=== PATIENT | female | born 1940 | race Caucasian/White ===

== ENCOUNTER → 2016-12-05 | Outpatient (CLI) | payer OTHER ==
[2016-12-05 18:23] LABS: BLOOD UREA NITROGEN 15 mg/dl (7-18); BUN/CREATININE RATIO 14.1 (10-20); CALCIUM 8.3 mg/dl (8.5-10.1); CARBON DIOXIDE 32 mmol/L (21-32); CHLORIDE 100 mmol/L (98-107); GLUCOSE 95 mg/dl (70-99); POTASSIUM 4.4 mmol/L (3.5-5.1); SODIUM 139 mmol/L (136-145)
[2016-12-06 07:34] LABS: ESTIMATED AVERAGE GLUCOSE 180 mg/dl; HA1C FLAG Normal (Normal)
[2016-12-09 02:34] LABS: IONIZED CALCIUM** TC 19950E 4.81 MG/DL (4.8-5.6)
== END | disposition home or self-care (01) ==
LOC: C.LABMFLN 12:24
PROVIDERS: ATTEND Family Medicine
DX: E03.9 Hypothyroidism, unspecified (principal); E11.9 Type 2 diabetes mellitus without complications; E55.9 Vitamin D deficiency, unspecified; M79.1 Myalgia

== ENCOUNTER → 2017-01-27 | Outpatient (CLI) | payer OTHER ==
[2017-01-27 13:10] LABS: HEMATOCRIT 42.1 % (37-47); MEAN CELL VOLUME 90.9 fL (80-100); MEAN CORPUSCULAR HEMOGLOBIN 30.9 pg (25-34); MEAN PLATELET VOLUME 9.9 fL (7.4-10.4); PLATELET COUNT 308 K/uL (130-400); RED BLOOD COUNT 4.63 M/uL (4.2-5.4); WHITE BLOOD COUNT 12.45 K/uL (4.8-10.8)
[2017-01-27 13:38] LABS: CALCIUM 8.6 mg/dl (8.5-10.1)
[2017-01-27 13:46] LABS: ALT/SGPT 27 U/L (12-78); AST/SGOT 25 U/L (15-37); BLOOD UREA NITROGEN 10 mg/dl (7-18); BUN/CREATININE RATIO 10.6 (10-20); CARBON DIOXIDE 36 mmol/L (21-32); CHLORIDE 103 mmol/L (98-107); CREATININE 0.93 mg/dl (0.60-1.20); GLUCOSE 39 mg/dl (70-99); POTASSIUM 3.6 mmol/L (3.5-5.1); SODIUM 143 mmol/L (136-145)
== END | disposition home or self-care (01) ==
LOC: C.LABMFLN 10:39
PROVIDERS: ATTEND Internal Medicine Cardiovascular Disease
DX: I48.91 Unspecified atrial fibrillation (principal); E78.5 Hyperlipidemia, unspecified; I10 Essential (primary) hypertension; I50.22 Chronic systolic (congestive) heart failure; F17.200 Nicotine dependence, unspecified, uncomplicated; Z79.899 Other long term (current) drug therapy

== ENCOUNTER → 2017-09-12 | Outpatient (CLI) | payer OTHER ==
[2017-09-12 13:01] LABS: BASO % 0.2 %; BASO ABS # 0.03 K/uL (0-0.2); COMPLETE YES; EOS % 3.3 %; HEMATOCRIT 39.3 % (37-47); IG% 0.2 %; LYMPH % 17.1 %; LYMPH ABS # 2.22 K/uL (1.2-3.4); MEAN CELL VOLUME 91.6 fL (80-100); MEAN CORPUSCULAR HEMOGLOBIN 30.8 pg (25-34); MEAN CORPUSCULAR HGB CONC 33.6 g/dl (32-36); MEAN PLATELET VOLUME 9.7 fL (7.4-10.4); MONO % 10.7 %; NEUT % 68.5 %; PLATELET COUNT 350 K/uL (130-400); RED BLOOD COUNT 4.29 M/uL (4.2-5.4); WHITE BLOOD COUNT 12.99 K/uL (4.8-10.8)
[2017-09-12 13:08] LABS: ESTIMATED AVERAGE GLUCOSE 154 mg/dl; HA1C FLAG Normal (Normal)
[2017-09-12 14:09] LABS: ALB/GLOB RATIO 0.9 (0.9-2); ALKALINE PHOSPHATASE 112 U/L (45-117); ALT/SGPT 16 U/L (12-78); AST/SGOT 15 U/L (15-37); BLOOD UREA NITROGEN 14 mg/dl (7-18); BUN/CREATININE RATIO 16.3 (10-20); CALCIUM 8.4 mg/dl (8.5-10.1); CARBON DIOXIDE 33 mmol/L (21-32); CHLORIDE 99 mmol/L (98-107); CREATININE 0.87 mg/dl (0.60-1.20); GLUCOSE 50 mg/dl (70-99); POTASSIUM 3.2 mmol/L (3.5-5.1); SODIUM 137 mmol/L (136-145)
== END | disposition home or self-care (01) ==
LOC: C.LABMFLN 09:54
PROVIDERS: ATTEND Family Medicine
DX: E11.9 Type 2 diabetes mellitus without complications (principal); I10 Essential (primary) hypertension; I42.0 Dilated cardiomyopathy; E03.9 Hypothyroidism, unspecified

== ENCOUNTER → 2017-09-13 | Outpatient (CLI) | payer OTHER ==
[2017-09-13 18:28] LABS: CREATININE RANDOM URINE 78.6 mg/dl
== END | disposition home or self-care (01) ==
LOC: C.LABMFLN 14:11
PROVIDERS: ATTEND Family Medicine
DX: E11.9 Type 2 diabetes mellitus without complications (principal); I10 Essential (primary) hypertension; I42.0 Dilated cardiomyopathy

== ENCOUNTER → 2017-10-30 | Outpatient (CLI) | payer OTHER ==
[2017-10-30 18:44] LABS: BLOOD UREA NITROGEN 24 mg/dl (7-18); CALCIUM 8.8 mg/dl (8.5-10.1); CARBON DIOXIDE 31 mmol/L (21-32); CREATININE 1.62 mg/dl (0.60-1.20); GLUCOSE 253 mg/dl (70-99); POTASSIUM 4.2 mmol/L (3.5-5.1); SODIUM 135 mmol/L (136-145)
== END | disposition home or self-care (01) ==
LOC: C.LABMFLN 14:08
PROVIDERS: ATTEND Family Medicine
DX: Z00.00 Encounter for general adult medical examination without abnormal findings (principal); E55.9 Vitamin D deficiency, unspecified; E21.3 Hyperparathyroidism, unspecified; E87.6 Hypokalemia

== ENCOUNTER → 2017-12-13 | Outpatient (CLI) | payer OTHER ==
[~2017-12-13] MED LIST: AMIO200T4 PO; AMLO-110 PO; APIX1TAB3 PO; ATOR-22 PO; CARV25TA PO; ENAL10TA88 PO; ENOX30IN4 SQ; ERGO500037 PO; HYDR-3983 PO; IBAN150T PO; INSDGI SC; LEVO50TA PO; LSX40 PO; NVLGI7030 SC; PANC1200 PO; POTA10CA28 PO; cbd oil UT
== END | disposition home or self-care (01) ==
LOC: C.LABMFLN 13:27
PROVIDERS: ATTEND Family Medicine
DX: R10.9 Unspecified abdominal pain (principal)

== ENCOUNTER 2017-12-22 05:16 | Inpatient (IN) | payer OTHER ==
[2017-11-29 14:35] VITALS: BMI 22.0
--- NOTE | 2017-11-29 15:12 | PAT Medication Instructions ---
Service Date Nov 29, 2017. Current Home Medication List Amiodarone Hcl (Cordarone), 200 MG PO QAM Amlodipine (Norvasc), 10 MG PO QAM Apixaban (Eliquis), 5 MG PO BID Atorvastatin (Lipitor), 20 MG PO HS Carvedilol (Coreg), 1 TAB PO BID Enalapril (Vasotec), 10 MG PO BID Enoxaparin (Lovenox), 30 MG SQ Q12H Ergocalciferol (Vitamin D 16506 Unit), 1 CAP PO WK Furosemide (Furosemide), 1 TAB PO QAM Hydrocodone/Acetaminophen 7.5MG/325MG (Eden 7.5MG/325MG), 2 TABS PO QID PRN for Pain Ibandronate Sodium (Boniva), 150 MG PO MONTHLY Insulin Aspart 70/30 (Novolog Mix 70/30), 1 DOSE SC DIRECTED Insulin Glargine (Lantus), 16 SC QAM Levothyroxine Sodium (Synthroid), 50 MCG PO QAM Pancrelipase (Lipase-Protease- (Creon 14193), 1 CAP PO TIDM Pancrelipase (Lipase-Protease- (Creon 84611), 1 CAP PO DIRECTED Potassium Chloride (Micro-K Ext Rel), 10 MEQ PO BID [cbd oil], 3-4 DROPS UT BID Medication Instructions For Your Scheduled Surgery - To hold Eliquis 3 days prior to surgery and start Lovenox after stopping Eliquis: Apixaban (Eliquis), 5 MG PO BID Enoxaparin (Lovenox), 30 MG SQ Q12H - Continue as directed: Ibandronate Sodium (Boniva), 150 MG PO MONTHLY Ergocalciferol (Vitamin D 95087 Unit), 1 CAP PO WK - Hold the following medications 24 hours prior to surgery: Enalapril (Vasotec), 10 MG PO BID - Hold the following medications the morning of surgery: Furosemide (Furosemide), 1 TAB PO QAM Insulin Aspart 70/30 (Novolog Mix 70/30), 1 DOSE SC DIRECTED Pancrelipase (Lipase-Protease- (Creon 18718), 1 CAP PO TIDM Pancrelipase (Lipase-Protease- (Creon 34126), 1 CAP PO DIRECTED Potassium Chloride (Micro-K Ext Rel), 10 MEQ PO BID [cbd oil], 3-4 DROPS UT BID - Take the following medications the morning of surgery with a sip of water: Levothyroxine Sodium (Synthroid), 50 MCG PO QAM Hydrocodone/Acetaminophen 7.5MG/325MG (Eden 7.5MG/325MG), 2 TABS PO QID PRN for Pain (okay to take up to 4 hours prior to surgery if needed) Amiodarone Hcl (Cordarone), 200 MG PO QAM Amlodipine (Norvasc), 10 MG PO QAM Carvedilol (Coreg), 1 TAB PO BID - Take the following medications as scheduled the night before surgery: Potassium Chloride (Micro-K Ext Rel), 10 MEQ PO BID Pancrelipase (Lipase-Protease- (Creon 70679), 1 CAP PO TIDM Pancrelipase (Lipase-Protease- (Creon 77609), 1 CAP PO DIRECTED Insulin Aspart 70/30 (Novolog Mix 70/30), 1 DOSE SC DIRECTED Hydrocodone/Acetaminophen 7.5MG/325MG (Eden 7.5MG/325MG), 2 TABS PO QID PRN for Pain (if needed) Carvedilol (Coreg), 1 TAB PO BID Atorvastatin (Lipitor), 20 MG PO HS - For Insulin Dependent Diabetic patients: Test blood sugar A.M. of surgery. - If Blood sugar greater than 150, take half of your regular dose of: Insulin Glargine (Lantus), take 8 units - If Blood sugar less than 150, do not take any: Insulin Glargine (Lantus ) If you have any questions please call us at [phone] or [phone] or [phone]
--- NOTE | 2017-11-29 15:40 | DIAGNOSTIC IMAGING REPORT ---
CHEST 2 VIEWS ROUTINE CLINICAL HISTORY: Preoperative evaluation. COMPARISON STUDY: No previous studies for comparison. FINDINGS: Lung volumes are normal. No pneumothorax or pleural effusion is noted. There is no consolidation or evidence for pulmonary edema. Cardiomediastinal silhouette is normal. Old left sixth rib fracture is present. IMPRESSION: No acute cardiopulmonary findings. Electronically signed by: Edu Thomas M.D. 11/29/2017 3:38 PM Dictated Date/Time: 11/29/2017 3:37 PM
[2017-11-29 16:37] LABS: BASO % 0.2 %; BASO ABS # 0.03 K/uL (0-0.2); EOS % 5.9 %; EOS ABS # 0.74 K/uL (0-0.5); HEMATOCRIT 37.4 % (37-47); HEMOGLOBIN 12.2 g/dL (12.0-16.0); IG# 0.04 K/uL (0.00-0.02); LYMPH % 17.6 %; MEAN CELL VOLUME 89.9 fL (80-100); MEAN CORPUSCULAR HEMOGLOBIN 29.3 pg (25-34); MEAN CORPUSCULAR HGB CONC 32.6 g/dl (32-36); MEAN PLATELET VOLUME 9.5 fL (7.4-10.4); MONO % 7.6 %; MONO ABS # 0.95 K/uL (0.11-0.59); NEUT % 68.4 %; NEUT ABS # 8.54 K/uL (1.4-6.5); PLATELET COUNT 322 K/uL (130-400); RED CELL DISTRIBUTION WIDTH CV 14.1 % (11.5-14.5); RED CELL DISTRIBUTION WIDTH SD 46.4 fL (36.4-46.3)
[2017-11-29 16:42] LABS: CALCIUM 8.6 mg/dl (8.5-10.1); CREATININE 1.25 mg/dl (0.60-1.20); POTASSIUM 4.5 mmol/L (3.5-5.1)
[2017-11-29 16:43] LABS: PTT PATIENT 28.7 SECONDS (21.0-31.0)
[2017-11-30 07:15] LABS: HEMOGLOBIN A1C 8.6 % (4.5-5.6)
--- NOTE | 2017-12-21 15:33 | History and Physical ---
History & Physical Date of Service Dec 21, 2017. History & Physical CC: Right internal carotid artery stenosis HPI: Mrs. Elisa Nava is a 77-year-old woman with history of hyperparathyroidism, depression, CVA in 2010, type 2 diabetes, pancreatic adenocarcinoma, CHF, hypertension, atrial fibrillation with RVR on apixaban, dilated cardiomyopathy, hypothyroidism, who is being evaluated for carotid stenosis. The patient says that she underwent a screening ultrasound a year ago and was found to have stenosis at that time, but that it was not severe. She had a repeat ultrasound recently with concern for increasing stenosis up to 75%. She then underwent a neck CTA, which showed right 70-75% ICA stenosis. The patient says that she did have a mini-stroke in 2010 and had difficulties swallowing and with right leg weakness at that time. That has since improved. She also reports difficulties with left-sided headaches. She denied any symptoms recently of unilateral upper or lower extremity numbness or weakness. She denies symptoms of amaurosis. She does report feeling "wobbly" and is wondering if her carotid disease is related to this. We reassured her that it is not likely related to her carotid disease. She is otherwise feeling well and denies chest pain, shortness of breath, nausea, vomiting, fevers, chills, night sweats. The patient says that she is a current smoker and has smoked for approximately 6 years. She did deny difficulties with claudication or rest pain. A 12-point review of systems was completed, with pertinent positives and negatives as noted above in HPI. Past medical history is significant for hyperparathyroidism, depression, CVA in 2010, diabetes, pancreatic adenocarcinoma, CHF, hypertension, atrial fibrillation with rapid ventricular response, dilated cardiomyopathy, smoking, hypothyroidism. Past surgical history is significant for Whipple in 2007, tonsillectomy, appendectomy, cataract surgery, ganglion cyst removal, breast cyst removal. Family history is significant for cancer, diabetes, heart disease. Social history is significant for current tobacco use. The patient says that she smokes about half a pack per day and has done so for the past 60 years. She drinks wine occasionally, approximately once per month. Medications were reviewed and include Vicodin, amiodarone, amlodipine, Eliquis, atorvastatin, Coreg, vitamin D3, enalapril, Lasix, ibandronate, insulin aspart, insulin glargine, levothyroxine, pancrelipase, potassium chloride. The patient has no known drug allergies. On physical exam, the patient's heart rate is 52 and blood pressure is 142/54 in the left arm and 136/48 in the right arm. She is awake, alert, and pleasant , in no acute distress. Neck is supple and trachea is midline. She has a significant right carotid bruit. Her lungs are clear to auscultation bilaterally. Her heart is bradycardic, irregularly irregular rhythm. Her abdomen is soft, nontender, nondistended with well-healed surgical incisions. Extremities: Bilateral feet are warm and well perfused. The patient has 5/5 strength in bilateral upper and lower extremities. Sensation is grossly intact. She has palpable radial pulses in her bilateral upper extremities. The patient underwent CTA of the neck, which was significant for 70-75% stenosis of the proximal right ICA and mild 45-50% focal stenosis in the proximal left ICA. Imp: Right internal carotid artery stenosis Plan: Patient is admitted for a right internal carotid artery endarterectomy with patch. I have discussed the risks options and benefits of the procedure with the patient. The patient understands the risks options and benefits and agrees to the procedure.
[~2017-12-22] VITALS: Ht 167.6 cm; Wt 66.9 kg
[2017-12-22] VITALS (9 sets, daily range): BP systolic 148–170; BP diastolic 54–73; PULSE 65–77; TEMP 36.7–37.5; O2SAT 93–97; Ht 167.6 cm; Wt 66.9 kg
[2017-12-22] MEDS ORDERED: CEFAZOLIN 1000MG IV PUSH 7.5 ML IV SCH (06:00)
[2017-12-22] MEDS ORDERED: LACTATED RINGER'S 1000ML 1,000 ML IV SCH ×2 (06:00)
[2017-12-22] MEDS ORDERED: ATROPINE SULFATE 0.1 MG/ML 5ML SYR IV PRN (07:00)
[2017-12-22] MEDS ORDERED: HYDROmorphone INJ 1 MG/ML SYR IV PRN (07:00)
[2017-12-22] MEDS ORDERED: EpHEDrine SULFATE INJ 50 MG/ML AMP IV PRN (07:00)
[2017-12-22] MEDS ORDERED: PHENYLEPHRINE 100MCG/ML 5ML SYR IV PRN (07:00)
[2017-12-22] MEDS ORDERED: FENTANYL CITRATE INJ 50 MCG/1 ML 2 ML VIAL IV PRN (07:00)
[2017-12-22] MEDS ORDERED: ONDANSETRON INJ 2 MG/ML 2 ML VIAL IV PRN ×2 (07:00→13:15)
[2017-12-22] MEDS ORDERED: THROMBIN FOR SOLN 20000 UNIT KIT ONE (07:25)
[2017-12-22] MEDS ORDERED: GELATIN SPONGE SZ 100 ONE (07:25)
[2017-12-22] MEDS ORDERED: LIDOCAINE HCL 1% 20 ML VIAL ONE (07:26)
[2017-12-22] MEDS ORDERED: HEPARIN SOD (PORCINE) 1000 UNIT/ML 10 ML VIAL ONE ×2 (07:26→08:44)
[2017-12-22] MEDS ORDERED: CEFAZOLIN SOD 1 GM VIAL ONE (07:26)
[2017-12-22] MEDS ORDERED: BUPIVACAINE/EPINEPHRINE 0.5% MPF 1:200,000 30 ML VIAL ONE (07:26)
[2017-12-22] MEDS ORDERED: NITROGLYCERIN 5 MG/ML 10 ML VIAL ONE (07:27)
[2017-12-22] MEDS ORDERED: LIDOCAINE HCL 2% JELLY 30 ML TUBE EXT ONE (07:27)
--- NOTE | 2017-12-22 07:36 | History & Physical Bridge Note ---
H&P Re-Evaluation Bridge Note: I have examined the patient, reviewed the History & Physical and in the interval since the performance of the History & Physical I have noted the following changes of clinical significance: No changes noted
[2017-12-22] MEDS ORDERED: LIDOCAINE HCL 2% 2 ML VIAL (20MG/ML) ONE ×2 (08:04→08:44)
[2017-12-22] MEDS ORDERED: PHENYLEPHRINE HCL INJ 10 MG/ML VIAL ONE (08:44)
[2017-12-22] MEDS ORDERED: PROPOFOL IV EMULSION 10 MG/ML 20 ML VIAL IV ONE (08:44)
[2017-12-22] MEDS ORDERED: FENTANYL CITRATE INJ 50 MCG/1 ML 2 ML VIAL ONE ×2 (08:44→11:47)
[2017-12-22] MEDS ORDERED: SUCCINYLCHOLINE CHLORIDE 20 MG/ML 10 ML VIAL IV ONE (08:44)
[2017-12-22] MEDS ORDERED: ONDANSETRON INJ 2 MG/ML 2 ML VIAL ONE (11:47)
[2017-12-22] MEDS ORDERED: GLYCOPYRROLATE INJ 0.2 MG/ML VIAL ONE (12:56)
[2017-12-22] MEDS ORDERED: NEOSTIGMINE METHYLSULFATE 5 MG/5 ML SYR ONE (12:56)
--- NOTE | 2017-12-22 13:09 | [facility] Post Operative Brief Note ---
Immediate Operative Summary Operative Date Dec 22, 2017. Pre-Operative Diagnosis Right Internal Carotid Artery Stenosis Post-Operative Diagnosis Same as preop Procedure(s) Performed Right carotid endarterectomy with patch Surgeon Dr. Vito Peterson Wallpaperer Surgeon(s) Emily Thomas, Fellow; Diana Alvares PA-C Estimated Blood Loss 100 cc Findings Consistent with Post-Op Diagnosis Specimens A: right carotid plaque Drains None Anesthesia Type General Complication(s) none Disposition Accompanied Pt To Recover: no Disposition: Recovery Room / PACU
[2017-12-22] MEDS ORDERED: OXYCODONE/ACETAMINOPHEN 5-325 TAB PO PRN (13:15)
[2017-12-22] MEDS ORDERED: GLUCOSE 10 TABS/TUBE PO PRN (13:15)
[2017-12-22] MEDS ORDERED: MoRPHine SULFATE 4 MG/ML 1 ML CARP\\VIAL IV PRN (13:15)
[2017-12-22] MEDS ORDERED: DEXTROSE 50% 50 ML SYR IV PRN (13:15)
[2017-12-22] MEDS ORDERED: GLUCOSE 40% GEL 15 GM TUBE PO PRN (13:15)
[2017-12-22] MEDS ORDERED: GLUCAGON FOR INJ 1 MG VIAL SQ PRN (13:15)
[2017-12-22] MEDS ORDERED: NITROGLYCERIN/D5W 100 MCG/ML BTL ONE (13:51)
--- NOTE | 2017-12-22 14:11 | OPERATIVE REPORT ---
DATE OF OPERATION: 12/22/2017 PREOPERATIVE DIAGNOSIS: High grade asymptomatic right carotid stenosis. POSTOPERATIVE DIAGNOSIS: Same. PROCEDURE: Right carotid endarterectomy with a Pemberton-Rex patch angioplasty. SURGEON: Dr. Vito Peterson. SCRAP CRUSHER: Dr. Emily Vazquez and Diana Bourgeois PA-C. ANESTHESIA: General anesthesia. FLUIDS: 1200 mL crystalloid. URINE OUTPUT: Not recorded. COMPLICATIONS: None apparent. CONDITION: Extubated to PACU. INDICATIONS: Ms. Elisa Nava is a 77-year-old female, who was found to have asymptomatic right high grade 75%-80% stenosis. She was advised the risks and benefits of undergoing carotid endarterectomy for stroke prevention. She agreed to undergo the procedure. DESCRIPTION OF PROCEDURE: The patient was brought to the operative suite. She was prepped and draped in the usual fashion. Time-out occurred. An incision was made anterior to the sternocleidomastoid. The platysma was then divided. The anterior border of the sternocleidomastoid was identified and taken down and retracted laterally. The facial vein was then identified and divided. It was palpated prior to division to ensure there was no low lying hypoglossal nerve. Then, the IJ was retracted laterally. During this time, the tie on the medial aspect of the facial vein was done and the medial aspect was ligated with a 2-0 silk stitch. The carotid was then identified and the common carotid was dissected out. The external carotid and superior thyroid were dissected out. The internal carotid was dissected out. During manipulation of the fold, the patient became bradycardic and lidocaine was injected into the bulb. Once the carotid was adequately exposed, the patient was heparinized with 5000 units of heparin. The external artery was looped with a vessel loop. After heparinization, the internal, external and common carotid arteries were clamped. #11 blade was used to make an arteriotomy. This was extended with Solorio scissors onto the internal carotid artery and distally into the common. A Jorge L shunt was then placed proximally and backbleeding was allowed. This was secured with a small Jorge L clamp. The shunt was then placed distally and secured with a large Jorge L shunt. Flow was reestablished to the shunt. At this point, attention was turned to the plaque. This was elevated using a Garvin elevator. The plaque was focal and calcific. The external carotid was also endarterectomized. Proximally, 2 tacking sutures were placed. The patch was brought into the field. The Pemberton-Rex patch was then sewn in with a CV6 suture. This was carried around for as long as possible until shunt required removal. At this point, the shunt was clamped with a hemostat. A Jorge L clamp was then removed and replaced with the proximal clamp. Prior to applying the clamp, the internal carotid was allowed to backbleed. Then, the shunt was removed from the common carotid. This was allowed to backbleed for a couple of bleeds and then an angled DeBakey clamp was used to clamp the common carotid. The patch was completed. The external was opened and then the common was allowed to back flow into the external and then the internal carotid was opened up and flow was reestablished. There was one area proximally that required a repair stitch. Otherwise, hemostasis was then obtained and the incision was closed with a 3-0 Vicryl and 4-0 Vicryl sutures. Incision was Dermabonded. The patient was awakened and moved all extremities and then, was transferred to the PACU in stable condition. Dr. Vito Peterson was present for the entirety of this case. I attest to the content of the Intraoperative Record and any orders documented therein. Any exception s are noted below.
--- NOTE | 2017-12-22 14:33 | Anesthesiology Progress Note ---
Anesthesia Post Op Note Date & Time Dec 22, 2017 at 14:33 Vital Signs Pain Intensity: 0 Vital Signs Past 12 Hours Date Time Temp Pulse Resp B/P (MAP) Pulse Ox O2 Delivery O2 Flow Rate FiO2 12/22/17 14:25 63 18 131/48 100 Nasal Cannula 3 166/54 12/22/17 14:15 63 18 131/48 100 Oxymask 10 161/47 12/22/17 14:05 63 18 153/60 100 Oxymask 10 170/51 12/22/17 13:55 64 18 132/52 100 Oxymask 10 12/22/17 13:46 37.6 65 18 166/62 100 Oxymask 10 12/22/17 05:43 36.7 65 20 163/54 97 Room Air Notes Mental Status: alert / awake / arousable, participated in evaluation Pt Amnestic to Procedure: Yes Nausea / Vomiting: adequately controlled Pain: adequately controlled Airway Patency, RR, SpO2: stable & adequate BP & HR: stable & adequate Hydration State: stable & adequate Anesthetic Complications: no major complications apparent
[2017-12-22] MEDS ORDERED: D5W AND 1/2NSS 1,000 ML IV SCH (16:30)
[2017-12-22] MEDS ORDERED: PANCREAZE (LIPASE 10,500U) CAP PO PRN (16:45)
[2017-12-22] MEDS: INSULIN HUMAN REGULAR SC SCH ×2 (17:14→20:14)
[2017-12-22] MEDS: PANCREAZE (LIPASE 10,500U) CAP PO SCH (17:15)
[2017-12-22] MEDS: CEFAZOLIN IV 1,000 MG in SYRINGE 0 ML IV SCH (17:15)
[2017-12-22] MEDS: POTASSIUM CHLORIDE 10 MEQ TABCR PO SCH (20:15)
[2017-12-22] MEDS: CARVEDILOL 25 MG TAB PO SCH (20:15)
[2017-12-22] MEDS: ENALAPRIL MALEATE 10 MG TAB PO SCH (20:16)
[2017-12-22] MEDS ORDERED: ATORVASTATIN 20 MG TAB PO SCH (21:00)
[2017-12-22] MEDS: HYDROCODONE/ACETAMINOPHEN 7.5/325MG TAB PO PRN (23:49)
[2017-12-23] MEDS ORDERED: NURSING VERBAL MED ORDER ONE
[2017-12-23] MEDS: CEFAZOLIN IV 1,000 MG in SYRINGE 0 ML IV SCH (01:17)
[2017-12-23 03:10] VITALS: BP 146/63; PULSE 70; TEMP 36.9; O2SAT 98
[2017-12-23 03:53] VITALS: O2SAT 97
[2017-12-23] MEDS ORDERED: LEVOTHYROXINE 50 MCG TAB PO SCH (06:00)
[2017-12-23] MEDS: HYDROCODONE/ACETAMINOPHEN 7.5/325MG TAB PO PRN (06:20)
[2017-12-23 07:16] VITALS: BP 161/63; PULSE 66; TEMP 37.4; O2SAT 96
[2017-12-23] MEDS: PANCREAZE (LIPASE 10,500U) CAP PO SCH (07:53)
[2017-12-23] MEDS: CARVEDILOL 25 MG TAB PO SCH (07:53)
[2017-12-23] MEDS: ENALAPRIL MALEATE 10 MG TAB PO SCH (07:53)
[2017-12-23] MEDS: POTASSIUM CHLORIDE 10 MEQ TABCR PO SCH (07:54)
[2017-12-23] MEDS: INSULIN HUMAN REGULAR SC SCH (07:56)
[2017-12-23] MEDS ORDERED: ENOXAPARIN 30 MG/0.3 ML SYR SQ SCH (08:00)
--- NOTE | 2017-12-23 08:58 | Progress Note ---
Progress Note Date of Service: Dec 23, 2017. Subjective Patient complaining of incisional discomfort. Does have pain with swallowing. Claims swallowing no worse than pre op. Claims her swallowing problem and her lip droop is from her old stroke. Objective Vital Signs Vital Signs Past 12 Hours Date Time Temp Pulse Resp B/P (MAP) Pulse Ox O2 Delivery O2 Flow Rate FiO2 12/23/17 08:00 Nasal Cannula 12/23/17 07:16 37.4 66 20 161/63 (95) 96 12/23/17 03:53 97 Oxymask 4.0 12/23/17 03:10 36.9 70 23 146/63 (90) 98 Oxymask 4.0 12/22/17 23:52 97 Oxymask 4.0 12/22/17 23:30 Oxymask 6.0 12/22/17 23:23 37.4 75 20 167/63 (97) 93 Oxymask 6.0 Exam VSS Afebrile Oxygenating well on room air. Incision clean and dry. Mild swelling seen Trachea midline. No new neuro deficits. Laboratory and Microbiology Results Past 24 Hours Test 12/22/17 12:02 12/22/17 14:46 12/22/17 15:51 12/22/17 19:58 Range/Units Bedside Glucose 180 203 188 218 70-90 mg/dl Test 12/23/17 06:12 12/23/17 08:47 Range/Units Bedside Glucose 183 70-90 mg/dl Imp; Post right CEA Plan: Doing well. Had decrease sats during the night but doing well on room air this am now that she is more alert and ambulating D//C today
[2017-12-23] MEDS ORDERED: FUROSEMIDE 40 MG TAB PO SCH (09:00)
[2017-12-23] MEDS ORDERED: AMLODIPINE BESYLATE 5 MG TAB PO SCH (09:00)
[2017-12-23] MEDS ORDERED: ERGOCALCIFEROL 50,000 INTER.UNIT CAP PO SCH (09:00)
[2017-12-23] MEDS ORDERED: INSULIN GLARGINE SOLOSTAR 100 UNITS/ML 3 ML PEN SC SCH (09:00)
[2017-12-23] MEDS ORDERED: ENOX30IN4 SQ (09:00)
[2017-12-23] MEDS ORDERED: AMIODARONE 200 MG TAB PO SCH (09:00)
[2017-12-23] MEDS ORDERED: HYDR-3983 PO (09:00)
[2017-12-23 09:04] LABS: HEMATOCRIT 32.6 % (37-47); HEMOGLOBIN 10.4 g/dL (12.0-16.0); MEAN CELL VOLUME 91.8 fL (80-100); MEAN CORPUSCULAR HEMOGLOBIN 29.3 pg (25-34); MEAN CORPUSCULAR HGB CONC 31.9 g/dl (32-36); MEAN PLATELET VOLUME 9.3 fL (7.4-10.4); PLATELET COUNT 261 K/uL (130-400); RED CELL DISTRIBUTION WIDTH CV 14.7 % (11.5-14.5); WHITE BLOOD COUNT 11.44 K/uL (4.8-10.8)
--- NOTE | 2017-12-23 09:04 | Discharge Instructions ---
Discharge Instructions Date of Service Dec 23, 2017. Admission Reason for Admission: Stenosis Of R Internal Carotid Artery Discharge Discharge Diagnosis / Problem: Rignt internal carotid artery stenosis Discharge Goals Goal(s): Therapeutic intervention Activity Recommendations Activity Limitations: per Instructions/Follow-up section Shower/Bathe: tomorrow . Instructions / Follow-Up Instructions / Follow-Up Call [phone] to schedule a follow up appointment if one not already scheduled. SPECIAL CARE INSTRUCTIONS: Medications: * Continue to take Aspirin as directed. Incision Care: * You may shower, but do not rub incision. You may let the warm soapy water run over it. Be sure to dry the incision well after bathing. * Do not shave directly over the incision until it is healed. * DO NOT IMMERSE THE INCISION IN A TUB/POOL/etc. UNTIL HEALED. Restrictions: * Do not drive for at least one week or if you are still taking any narcotic pain medication. * Do not lift anything heavier than a gallon of milk for one week after going home. Possible Complications: * Numbness - It is normal to have some numbness around the incision. Numbness can extend beyond the incision to areas of the neck, ear and face. The numbness is due to bruising of nerves during the surgery and will gradually improve over a period of months. * Hoarseness/Difficulty Speaking and Swallowing - The bruising of nerves in the neck can also cause a hoarse voice, difficulty speaking or swallowing. This may improve over time, HOWEVER, if it continues for more than a few days please contact our office ([phone]). * Excessive Swelling - There will be some swelling immediately after surgery which usually resolves within one week. If you notice that the swelling is getting worse, notify your surgeon ([phone]). * Drainage/Bleeding - If there is any drainage or bleeding, it should be a very small amount (less than a teaspoon per day). If you have excessive bleeding or drainage from the incision, call your surgeon ([phone]) right away. ACTIVATION OF EMERGENCY MEDICAL SYSTEM: Call [phone], immediately, if you experience any of the following: Warning Signs and Symptoms of Stroke: * Sudden numbness or weakness of the face, arm or leg, especially on one side of the body * Sudden confusion, trouble speaking or understanding * Sudden trouble seeing in one or both eyes * Sudden trouble walking, dizziness, loss of balance or coordination * Sudden severe headache with no cause Do not delay calling 911 if you experience any warning signs or symptoms of a stroke. Delay in seeking medical attention may affect what treatments can be given to you. Risk Factors for Stroke: You can reduce your chances of stroke by working with your medical provider to adopt a healthy lifestyle. Some specific ways to lower your chance of stroke are: * If you are a smoker, now is the time to stop smoking cigarettes * If you are diabetic, improve the control of your blood sugars * Avoid excessive amounts of alcohol * Control high blood pressure * Lose weight if you are overweight * Be sure to lead an active lifestyle * Eat a healthy diet low in salt, cholesterol and fat You should know about other risk factors for stroke that you are unable to control. These include: * Age 55 years or older * Male gender * Certain racial groups: , or / * Family History of Stroke, Mini stroke or Heart Attack * Sickle Cell Disease You will be receiving a call from the Vascular Surgery Nurse after you are discharged. FOLLOW UP VISIT: It is important for you to keep your follow up appointments with your medical provider. Keep any scheduled doctor appointments. Current Hospital Diet Patient's current hospital diet: AHA Diet (Heart Healthy), Diabetes Type 2 Diet Discharge Diet Recommended Diet: AHA Diet (Heart Healthy), Diabetes Type 2 Diet Procedures Procedures Performed: Right carotid endarterectomy with patch Pending Studies Studies pending at discharge: no Laboratory Results Hemoglobin A1c Test 11/29/17 15:20 Range/Units Estimated Average Glucose 200 mg/dl Hemoglobin A1c 8.6 H 4.5-5.6 % Medical Emergencies . Who to Call and When: Medical Emergencies: If at any time you feel your situation is an emergency, please call 911 immediately. . Non-Emergent Contact Non-Emergency issues call your: Surgeon . "Provider Documentation" section prepared by Vito Peterson. .
[2017-12-23] MEDS ORDERED: HYDR-5688 PO (09:07)
[2017-12-23 09:11] VITALS: BP 161/63; PULSE 66; TEMP 37.4; O2SAT 96
[2017-12-23 09:26] LABS: CALCIUM 7.5 mg/dl (8.5-10.1); CREATININE 1.12 mg/dl (0.60-1.20); POTASSIUM 4.3 mmol/L (3.5-5.1)
--- NOTE | 2017-12-25 11:36 | DISCHARGE SUMMARY ---
ADMISSION DIAGNOSES: Severe right internal carotid artery stenosis, history of cerebrovascular accident. DISCHARGE DIAGNOSES: 1. Status post right carotid endarterectomy with patch. 2. Severe right internal carotid artery stenosis with history of cerebrovascular accident. DISCHARGE CONDITION: Stable. CONSULTATIONS IN THE HOSPITAL: Included none. PROCEDURES IN THE HOSPITAL: Right internal carotid artery endarterectomy with patch performed on 12/22/2017 with an EBL of 100 mL and no significant complications. HISTORY OF PRESENT ILLNESS: Brandy is a 77-year-old female with a history of hyperparathyroidism, depression, CVA in 2010, type 2 diabetes mellitus, pancreatic adenocarcinoma, CHF, hypertension, atrial fibrillation, cardiomyopathy and hypothyroidism who arrived in our office to be evaluated for a right internal carotid artery stenosis. She states that she had undergone a screening ultrasound year prior and they found some mild stenosis but a repeat ultrasound had demonstrated increased stenosis of 75% or more. Her family physician recommended that she see a vascular surgeon for reevaluation. She states that her history of CVA resulted in a slight droop to her left lip and chronic left-sided headaches. After further evaluation, she was noted to have an 80% right ICA stenosis and was recommended to undergo right carotid endarterectomy. She expressed understanding and agreement to proceed. HOSPITAL COURSE: The patient was admitted on 12/22/2017 after undergoing her right carotid endarterectomy. As I said, this was performed without significant complications and an EBL of 100 mL. She did essentially well postoperatively with some mild complaints of pain with swelling and incisional discomfort which was controlled with medication. Otherwise, she says she was at her normal baseline and was felt to be stable for discharge on postop day 1. PHYSICAL EXAMINATION: VITAL SIGNS: On day of discharge, her vital signs were as follows: Temperature 37.4, pulse is 66, respiratory rate of 20, blood pressure 161/63 and pulse oximetry of 96% on room air. CONSTITUTIONAL: The patient is a mildly chronically ill elderly female in no acute distress. She ambulated slowly without assistance and is active, alert and oriented x3. HEAD: Normocephalic and atraumatic. EYES: EOMI. NECK: Demonstrates some mild edema. The right side of her neck has her surgical incision which is well approximated and healing appropriately. Demonstrates some mild edema and ecchymosis as well as tenderness; however, it is soft. There is no firm hematoma noted. Trachea is midline. The left side of her neck demonstrates no swelling or ecchymosis. HEART: Demonstrates a regular rhythm. LUNGS: Clear but decreased throughout. EXTREMITIES: Peripheral pulses full and equal in all extremities unless otherwise noted, specifically they are normal in her carotid, brachial and radial pulses. Her femoral pulses are +3. Her distal pulses are +1. She has brisk capillary refill. No signs of distal ischemia. ABDOMEN: Soft, nontender with active bowel sounds in all 4 quadrants without guarding or rebound. There is no flank or CVA tenderness. MUSCULOSKELETAL: Demonstrates normal tone and strength for age. Bilateral upper extremities demonstrate no cyanosis, edema, clubbing, varicosities or ulcers. Bilateral lower extremities demonstrate trace edema which is chronic but no cyanosis or ulcerations. NEUROLOGIC: The patient demonstrates no new focal deficits. Grossly intact cranial nerves and grossly intact sensation. DIET: Should be a low cholesterol, AHA and diabetic diet. MEDICATIONS: Reconciled in the chart and are as per her discharge instructions. FOLLOWUP: With Dr. Peterson or his PA Diana Bourgeois within 2 weeks for evaluation. She is advised to call the office for any other questions.
== END 2017-12-23 10:09 | disposition home or self-care (01) | DRG 39 ==
LOC: C.ACU 05:16 → C.2T 09:16 → ENRESERV 14:51
PROVIDERS: ADMIT Surgery Vascular Surgery; ATTEND Surgery Vascular Surgery
PROC: 03CL0ZZ Extirpation of Matter from Left Internal Carotid Artery, Open Approach (ICD-10-PCS; principal; 2017-12-22 08:00)
DX: I65.21 Occlusion and stenosis of right carotid artery (principal); E21.3 Hyperparathyroidism, unspecified; F32.9 Major depressive disorder, single episode, unspecified; E11.9 Type 2 diabetes mellitus without complications; I10 Essential (primary) hypertension; I48.91 Unspecified atrial fibrillation; E03.9 Hypothyroidism, unspecified; F17.200 Nicotine dependence, unspecified, uncomplicated; Z98.49 Cataract extraction status, unspecified eye; Z79.4 Long term (current) use of insulin; Z86.73 Personal history of transient ischemic attack (TIA), and cerebral infarction without residual deficits; Z80.9 Family history of malignant neoplasm, unspecified; Z83.3 Family history of diabetes mellitus; Z82.49 Family history of ischemic heart disease and other diseases of the circulatory system